=== PATIENT | female | born 1970 | race African-American/Black ===

== ENCOUNTER 2017-05-28 16:40 | Emergency (ER) | payer OTHER ==
[~2017-05-28] VITALS: Ht 172.7 cm; Wt 79.9 kg
[2017-05-28 16:50] VITALS: BP 154/97
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
--- NOTE | 2017-05-28 19:55 | NUR ---
Dr. Hartmann evaluating patient.
--- NOTE | 2017-05-28 19:58 | NUR ---
Patient being evaluated by physician at bedside.
--- NOTE | 2017-05-28 20:46 | NUR ---
PT LEFT TO RADIOLOGY VIA WC, ACCOMPANIED BY WORKFLOW DEVELOPER
--- NOTE | 2017-05-28 21:07 | NUR ---
PT RETURN FROM RADIOLOGY
--- NOTE | 2017-05-28 21:09 | NUR ---
Edwin josue in [facility] - 05/28/17 at 2113 by SHAILA PT RETURN FROM XRAY
--- NOTE | 2017-05-28 21:23 | NUR ---
Patient discharged with v/s stable. Written and verbal after care instructions given and explained. Patient alert, oriented and verbalized understanding of instructions. Ambulatory with steady gait. All questions addressed prior to discharge. ID band removed. Patient advised to follow up with PMD. Rx of FLEXERIL 5MG, MOTRIN 600MG, NORCO 5/325MG given. Patient educated on indication of medication including possible reaction and side effects. Opportunity to ask questions provided and answered.
[2017-05-28 21:25] VITALS: BP 136/88
--- NOTE | 2017-05-29 15:18 | NUR ---
ADDENDUM: CALL FROM [facility], DISCRIPANCY XR CERVICAL SPINE. REFERRED AND REVIEWED BY DR. JIMENEZ. NO FARTHER TX. NEEDED
== END 2017-05-28 21:23 | disposition home or self-care (01) ==
LOC: MED 16:40
DX: S16.1XXA Strain of muscle, fascia and tendon at neck level, initial encounter (principal); M54.5 Low back pain; R03.0 Elevated blood-pressure reading, without diagnosis of hypertension; D64.9 Anemia, unspecified; V49.40XA Driver injured in collision with unspecified motor vehicles in traffic accident, initial encounter; Y93.89 Activity, other specified; Y92.89 Other specified places as the place of occurrence of the external cause; Y99.8 Other external cause status
CPT/HCPCS: 72050; 81025; 99284